=== PATIENT | female | born 1990 | race American Indian/Alaskan Native ===

== ENCOUNTER 2018-03-23 19:31 | Emergency (ER) | payer SELFPAY ==
[2018-03-23 20:08] VITALS: BP 140/89
--- NOTE | 2018-03-23 22:46 | Emergency Department Report ---
ED Medical Clearance HPI - General Chief complaint: Medical Clearance Stated complaint: POSS MOLD EXPOSURE Time Seen by Provider: 03/23/18 22:25 Source: patient Mode of arrival: Ambulatory - History of Present Illness Initial comments: Patient is a 28-year-old -[place] female who presents for medical clearance patient has multiple sick exacerbating her bronchitis and seasonal allergies complains of frequent rhinorrhea nasal and head congestion nocturnal wheezing been no fever or chills no nausea vomiting she's had positive mole test in her apartment and cough is worsening. Patient states symptoms are improved by leaving home symptoms are exacerbated by being in her apartment Complaint: medical clearance request Onset/Timin -: month(s) Reason for Medical Clearance: other (pos mole spore in apartment ) Place: home Alledged Intoxication: No Compliant with Home Medications: Yes Traumatic Symptoms: denies traumatic injury Associated Symptoms: cough Treatments Prior to Arrival: none Home medications: Previous Rx's Medication Instructions Recorded Last Taken Type Cetirizine HCl [ZyrTEC] 10 mg PO DAILY #30 tab.rapdis 03/24/18 Unknown Rx Fluticasone [Flonase] 1 spray NS QDAY #1 bottle 03/24/18 Unknown Rx Ibuprofen 800 mg PO TID PRN #30 tablet 03/24/18 Unknown Rx predniSONE [Deltasone] 40 mg PO QDAY 5 Days #10 tab 03/24/18 Unknown Rx Allergies/Adverse reactions: Allergies Allergy/AdvReac Type Severity Reaction Status Date / Time grass pollen Allergy Itching Verified 03/23/18 20:01 mold Allergy Shortness Verified 03/23/18 20:01 of Breath shrimp Allergy Itching Verified 03/23/18 20:01 ED Review of Systems ROS: Stated complaint: POSS MOLD EXPOSURE Other details as noted in HPI Constitutional: denies: chills, fever Eyes: denies: eye pain, eye discharge, vision change ENT: congestion. denies: ear pain, throat pain Respiratory: cough, shortness of breath, wheezing Cardiovascular: denies: chest pain, palpitations Endocrine: no symptoms reported Gastrointestinal: denies: abdominal pain, nausea, vomiting, diarrhea Genitourinary: denies: urgency, dysuria, discharge Musculoskeletal: denies: back pain, joint swelling, arthralgia Skin: denies: rash, lesions Neurological: denies: headache, weakness, paresthesias Psychiatric: denies: anxiety, depression Hematological/Lymphatic: denies: easy bleeding, easy bruising ED Past Medical Hx - Past Medical History Previous Medical History?: No Additional medical history: FIBROIDS - Surgical History Past Surgical History?: Yes Additional Surgical History: FIBROIDS SURGERY - Social History Smoking Status: Current Every Day Smoker Substance Use Type: Alcohol - Medications Home Medications: Home Medications Medication Instructions Recorded Confirmed Last Taken Type Cetirizine HCl [ZyrTEC] 10 mg PO DAILY #30 tab.rapdis 03/24/18 Unknown Rx Fluticasone [Flonase] 1 spray NS QDAY #1 bottle 03/24/18 Unknown Rx Ibuprofen 800 mg PO TID PRN #30 tablet 03/24/18 Unknown Rx predniSONE [Deltasone] 40 mg PO QDAY 5 Days #10 tab 03/24/18 Unknown Rx ED Physical Exam - General Limitations: No Limitations General appearance: alert, in no apparent distress - Head Head exam: Present: atraumatic, normocephalic - Eye Eye exam: Present: normal appearance, PERRL, EOMI Pupils: Present: normal accommodation - ENT ENT exam: Present: normal orophraynx, mucous membranes moist, TM's normal bila terally, normal external ear exam - Neck Neck exam: Present: normal inspection, full ROM. Absent: tenderness, lymphadenopathy, thyromegaly - Respiratory Respiratory exam: Present: normal lung sounds bilaterally. Absent: respiratory distress, wheezes, rhonchi, stridor, chest wall tenderness - Cardiovascular Cardiovascular Exam: Present: regular rate, normal rhythm, normal heart sounds. Absent: systolic murmur, diastolic murmur, rubs, gallop - GI/Abdominal GI/Abdominal exam: Present: soft, normal bowel sounds. Absent: distended, guarding, bruit, hernia - Rectal Rectal exam: Present: deferred - Extremities Exam Extremities exam: Present: normal inspection, full ROM. Absent: tenderness - Back Exam Back exam: Present: normal inspection, full ROM. Absent: tenderness - Neurological Exam Neurological exam: Present: alert, oriented X3, CN II-XII intact - Psychiatric Psychiatric exam: Present: normal affect, normal mood - Skin Skin exam: Present: warm, dry, intact, normal color. Absent: rash ED Course Vital Signs 03/23/18 20:01 Temperature 97.6 F Pulse Rate 70 Respiratory 14 Rate Blood Pressure 140/89 O2 Sat by Pulse 100 Oximetry ED Medical Decision Making - Radiology Data Radiology results: report reviewed, image reviewed FINDINGS: Heart: Normal. Mediastinum/Vessels: Normal. Lungs/Pleural space: Normal. Bony thorax: No acute osseous abnormality. Other: IMPRESSION: Normal examination. Transcribed By: CO Dictated By: LINDA DOTY MD Electronically Authenticated By: LINDA DOTY MD Signed Date/Time: 03/24/18 0012 - Medical Decision Making Chest x-ray is normal no infiltrates no opacities ENT exam TMs are normal nose mild rhinorrhea and postnasal drip mildly boggy pharynx mild erythema no exudate no lesions no wheezing no stridor uvula remains midline lungs are clear throughout plan Zyrtec Flonase ibuprofen when necessary follow up with PCP in 2 to 3 days return to emergency should symptoms worsen, pt verbalized agreement and understanding of discharge plan. ED Disposition Clinical Impression: Seasonal allergies, Suspected exposure to mold Disposition: DC-01 TO HOME OR SELFCARE Is pt being admited?: No Does the pt Need Aspirin: No Condition: Stable Instructions: Allergies (ED) Prescriptions: Cetirizine HCl [ZyrTEC] 10 mg PO DAILY #30 tab.rapdis Fluticasone [Flonase] 1 spray NS QDAY #1 bottle Ibuprofen 800 mg PO TID PRN #30 tablet PRN Reason: pain predniSONE [Deltasone] 40 mg PO QDAY 5 Days #10 tab Referrals: PRIMARY CARE, [Primary Care Provider] - 3-5 Days Forms: Work/School Release Form(ED) Time of Disposition: 00:23
[2018-03-23 22:59] LABS: HCG Qualitative,Urine Negative (Negative)
--- NOTE | 2018-03-24 00:12 | XRay Report ---
FINAL REPORT PROCEDURE: XR CHEST ROUTINE 2V TECHNIQUE: PA and lateral chest radiographs were obtained. CPT 35199 HISTORY: sob COMPARISON: No prior studies are available for comparison. FINDINGS: Heart: Normal. Mediastinum/Vessels: Normal. Lungs/Pleural space: Normal. Bony thorax: No acute osseous abnormality. Other: IMPRESSION: Normal examination.
== END 2018-03-24 00:32 | disposition home or self-care (01) ==
LOC: ED 19:31
DX: J34.89 Other specified disorders of nose and nasal sinuses (principal); F17.200 Nicotine dependence, unspecified, uncomplicated; Z91.013 Allergy to seafood
CPT/HCPCS: 71046; 81025; 99283

== ENCOUNTER 2021-11-06 07:50 | Inpatient (IN) | payer OTHER ==
--- NOTE | 2021-11-06 09:00 | Emergency Department Report ---
Stated Complaint: SOB/CHEST PAIN/COUGHING BLOOD Time Seen by Provider: 11/06/21 08:59 - HPI History of Present Illness: Patient states for the last 2 days she has had shortness of breath chest pain and coughing up blood. She denies nausea, vomiting, dizziness, diaphoresis. - ROS Review of Systems: Chest pain shortness of breath. - Exam Physical Exam: Alert and oriented x3. MSE screening note: Focused history and physical exam performed. Due to findings the following was ordered: CBC, CMP, troponin, EKG, D-dimer. Patient be further evaluated when he gets a room in the back. ED Disposition for MSE Condition: Stable
[2021-11-06 13:48] LABS: INR QNS (0.87-1.13); Partial Thromboplastin Time QNS Sec. (24.2-36.6)
--- NOTE | 2021-11-06 14:15 | XRay Report ---
XR chest routine 2V INDICATION / CLINICAL INFORMATION: sob. COMPARISON: 03/23/2018 FINDINGS: SUPPORT DEVICES: None. HEART /PULMONARY VASCULATURE: No significant abnormality. LUNGS / PLEURA: Lung volumes are diminished. Streaky perihilar opacities. There is airspace consolida tion of the lateral left lung base. More mild airspace consolidation is suggested at the lateral righ t costophrenic sulcus. No sizable pleural effusion. No pneumothorax. ADDITIONAL FINDINGS: No significant additional findings. IMPRESSION: Bibasilar airspace consolidation, left greater than right, concerning for pneumonia. Signer Name: Nilesh Fam MD Signed: 11/06/2021 2:11 PM Workstation Name: [id number]
[2021-11-06 16:33] LABS: Partial Thromboplastin Time 34.5 Sec. (24.2-36.6)
[2021-11-06 18:18] LABS: Alanine Aminotransferase 7 units/L (7-56); Albumin 4.4 g/dL (3.9-5); Blood Urea Nitrogen 4 mg/dL (7-17); Calcium 9.2 mg/dL (8.4-10.2); Hemolysis Index 33
[2021-11-06 18:19] LABS: BUN/Creatinine Ratio 13
--- NOTE | 2021-11-06 21:57 | Event Note ---
Date: 11/06/21 Received phone call from radiologist informing me the patient has massive bilateral PEs with evidence of infarction seen on a CT scan ordered by RAMSEY. No saddle embolus. Nursing attempting to locate patient as she she may have eloped
[2021-11-06] MEDS ORDERED: HEPARIN 10,000 UNITS/10 ML VIAL IV PRN ×2 (21:59→22:11)
[2021-11-06] MEDS ORDERED: HEPARIN 10,000 UNITS/10 ML VIAL IV ONE ×2 (21:59→22:11)
--- NOTE | 2021-11-06 22:03 | Cat Scan Report ---
CTA CHEST WITH CONTRAST INDICATION / CLINICAL INFORMATION: SHORTNESS OF BREATH 100ml of [id number]. TECHNIQUE: Axial CT images were obtained through the chest after injection of IV contrast. 3 plane ME P and/or 3D reconstructions were produced. All CT scans at this location are performed using CT dose reduction for ALARA by means of automated exposure control. COMPARISON: X-ray chest of same date FINDINGS: PULMONARY EMBOLUS: Extensive bilateral pulmonary emboli involving the distal lobar and proximal segme ntal branches of the left and right lower lobes. THORACIC AORTA: No significant abnormality. HEART: Mild prominence of the right ventricle, suggesting early strain. CORONARY ARTERY CALCIFICATION: Absent -- None. MEDIASTINUM / DANA: No significant abnormality. PLEURA: No pleural effusion. No pneumothorax. LUNGS: Extensive consolidations within the bilateral lower lobes, concerning for pulmonary infarction . ADDITIONAL FINDINGS: None. UPPER ABDOMEN: No acute findings. SKELETAL STRUCTURES: No significant osseous abnormality. IMPRESSION: 1. Extensive bilateral pulmonary emboli involving the distal lobar and proximal segmental branches of the left and right lower lobes with resultant pulmonary infarctions within the bilateral lower lobes . 2. Mild right heart strain. CRITICAL RESULT: Extensive bilateral pulmonary emboli with developing pulmonary infarctions and mild right heart strain. Time of Discovery (KEY ACCOUNT EXECUTIVE/CDT): 8:40 PM 11/06/2021 Time of Communication (KEY ACCOUNT EXECUTIVE/CDT): 8:55 PM 11/06/2021 Licensed Practitioner Receiving Report: Dr. Peacock Read-Back Performed: Yes. Signer Name: Tera Ro MD Signed: 11/06/2021 9:58 PM Workstation Name: [email or web address]
--- NOTE | 2021-11-06 22:05 | Emergency Department Report ---
HPI - General Chief Complaint: Dyspnea/Respdistress Time Seen by Provider: 11/06/21 08:59 - HPI HPI: Room 24 The patient is a 31-year-old female present with chief complaint of chest pain shortness of breath. Patient states her symptoms began 2 days ago with hemoptysis. Patient states last night she developed pain in her left shoulder which then migrated down to her left chest. Patient admits to continued shortness of breath and pleurisy requiring her to sleep upright. Patient denies any recent flights/long car trips. Patient currently gives her pain a score of 10/10 ED Past Medical Hx - Past Medical History Previous Medical History?: No Additional medical history: FIBROIDS - Surgical History Past Surgical History?: No Additional Surgical History: Myomectomy, thyroidectomy, ovarian cyst removal (patient only has a left ovary remaining) - Family History Family history: no significant - Social History Smoking Status: Current Some Day Smoker (Occasional. Patient states she is not on control) Substance Use Type: None (Denies illicit drug use), Alcohol (Occasional) - Medications Home Medications: Home Medications Medication Instructions Recorded Confirmed Last Taken Type Cetirizine HCl [ZyrTEC] 10 mg PO DAILY #30 tab.rapdis 03/24/18 Unknown Rx Fluticasone [Flonase] 1 spray NS QDAY #1 bottle 03/24/18 Unknown Rx Ibuprofen [Ibuprofen 800] 800 mg PO TID PRN #30 tablet 03/24/18 Unknown Rx predniSONE [Deltasone] 40 mg PO QDAY 5 Days #10 tab 03/24/18 Unknown Rx ED Review of Systems ROS: Stated complaint: SOB/CHEST PAIN/COUGHING BLOOD Other details as noted in HPI Constitutional: no symptoms reported Eyes: denies: eye pain ENT: denies: throat pain Respiratory: shortness of breath, other (Hemoptysis) Cardiovascular: chest pain Endocrine: no symptoms reported Gastrointestinal: denies: abdominal pain Genitourinary: denies: dysuria Musculoskeletal: denies: back pain Neurological: denies: headache Physical Exam - Physical Exam Vital Signs: Vital Signs 11/06/21 08:57 Temperature 98.6 F Pulse Rate 90 Respiratory 18 Rate Blood Pressure 106/59 [Left] O2 Sat by Pulse 99 Oximetry Physical Exam: GENERAL: The patient is well-developed well-nourished female sitting on stretcher appearing to be in mild discomfort. [] HEENT: Normocephalic. Atraumatic. Extraocular motions are intact. Patient has moist mucous membranes. NECK: Supple. Trachea midline CHEST/LUNGS: Clear to auscultation. There is increased work of breathing HEART/CARDIOVASCULAR: Regular. There is tachycardia. There is no gallop rub or murmur. ABDOMEN: Abdomen is soft, nontender. Patient has normal bowel sounds. There is no abdominal distention. SKIN: There is no rash. There is no edema. There is no diaphoresis. NEURO: The patient is awake, alert, and oriented. The patient is cooperative. The patient has no focal neurologic deficits. The patient has normal speech. GCS 15 MUSCULOSKELETAL: There is no tenderness to palpation of the calves bilaterally. There is no evidence of acute injury. ED Course Vital Signs 11/06/21 08:57 Temperature 98.6 F Pulse Rate 90 Respiratory 18 Rate Blood Pressure 106/59 [Left] O2 Sat by Pulse 99 Oximetry - Consultations Consultation #1: 11/06/21 22:05 Vascular surgery paged 11/06/21 22:[address] Armando- recommends Heparin for now ED Medical Decision Making - Lab Data Result diagrams: 11/06/21 17:39 Laboratory Tests 11/06/21 11/06/21 11/06/21 10:13 10:13 10:13 PT QNS INR QNS APTT QNS D-Dimer QNS Sodium Potassium Chloride Carbon Dioxide Anion Gap BUN Creatinine Estimated GFR BUN/Creatinine Ratio Glucose Calcium Total Bilirubin AST ALT Alkaline Phosphatase Troponin T < 0.010 Total Protein Albumin Albumin/Globulin Ratio HCG, Qual Negative 11/06/21 11/06/21 15:01 17:39 PT 14.3 INR 1.00 APTT 34.5 D-Dimer 892.54 H Sodium 139 Potassium 4.3 Chloride 101.1 Carbon Dioxide 23 Anion Gap 19 BUN 4 L Creatinine 0.3 L Estimated GFR > 60 BUN/Creatinine Ratio 13 Glucose 112 H Calcium 9.2 Total Bilirubin 0.50 AST 13 ALT 7 Alkaline Phosphatase 103 Troponin T Total Protein 7.1 Albumin 4.4 Albumin/Globulin Ratio 1.6 HCG, Qual - EKG Data -: EKG Interpreted by Ia EKG shows normal: sinus rhythm, axis Rate: normal (91 bpm) - EKG Data When compared to previous EKG there are: previous EKG unavailable Interpretation: nonspecific ST-T wave violet - Radiology Data Radiology results: report reviewed (CT chest), image reviewed (CT chest) [facility] [address] [id number] Cat Scan Report Signed Patient: TODD CARR MR#: [id number] : 1990 Acct:[id number] Age/Sex: 31 / F ADM Date: 11/06/21 Loc: ED Attending Dr: Ordering Physician: KELSIE DOWLING MD Date of Service: 11/06/21 Procedure(s): CT angio chest Accession Number(s): [id number] cc: KELSIE DOWLING MD CTA CHEST WITH CONTRAST INDICATION / CLINICAL INFORMATION: SHORTNESS OF BREATH 100ml of [id number]. TECHNIQUE: Axial CT images were obtained through the chest after injection of IV contrast. 3 plane MIP and/or 3D reconstructions were produced. All CT scans at this location are performed using CT dose reduction for ALARA by means of automated exposure control. COMPARISON: X-ray chest of same date FINDINGS: PULMONARY EMBOLUS: Extensive bilateral pulmonary emboli involving the distal lobar and proximal segmental branches of the left and right lower lobes. THORACIC AORTA: No significant abnormality. HEART: Mild prominence of the right ventricle, suggesting early strain. CORONARY ARTERY CALCIFICATION: Absent -- None. MEDIASTINUM / DANA: No significant abnormality. PLEURA: No pleural effusion. No pneumothorax. LUNGS: Extensive consolidations within the bilateral lower lobes, concerning for pulmonary infarction. ADDITIONAL FINDINGS: None. UPPER ABDOMEN: No acute findings. SKELETAL STRUCTURES: No significant osseous abnormality. IMPRESSION: 1. Extensive bilateral pulmonary emboli involving the distal lobar and proximal segmental branches of the left and right lower lobes with resultant pulmonary infarctions within the bilateral lower lobes. 2. Mild right heart strain. - Differential Diagnosis PE, pneumonia, bronchitis Critical care attestation.: If time is entered above; I have spent that time in minutes in the direct care of this critically ill patient, excluding procedure time. ED Disposition Clinical Impression: Pulmonary embolism, bilateral, Chest pain Disposition: ADMITTED INPATIENT Is pt being admited?: Yes Does the pt Need Aspirin: No Condition: Serious Instructions: Nonspecific Chest Pain, Adult Referrals: JOE OSHEA MD [Primary Care Provider] - 3-5 Days Time of Disposition: 22:12 (Care transferred to hospitalist (Dr. Duron))
[2021-11-06] MEDS ORDERED: HYDROmorphone 1 MG/1 ML INJ IV ONE (22:07)
[2021-11-06] MEDS ORDERED: ONDANSETRON 4 MG/2 ML INJ IV ONE (22:07)
[2021-11-06] MEDS ORDERED: ACETAMINOPHEN 325 MG TAB PO PRN (22:18)
[2021-11-06] MEDS ORDERED: MORPHINE 2 MG/1 ML INJ IV PRN (22:18)
[2021-11-06] MEDS ORDERED: ONDANSETRON 4 MG/2 ML INJ IV PRN (22:18)
[2021-11-06] MEDS ORDERED: ALBUTEROL 2.5 MG/3 ML NEBU IH PRN (22:18)
--- NOTE | 2021-11-06 22:26 | History and Physical Report ---
History of Present Illness Date of examination: 11/06/21 Date of admission: 11/06/21 Chief complaint: Dyspnea Respiratory distress Chest pain History of present illness: 31-year-old female with history of uterine fibroid and tobacco abuser was brought to the emergency room because of chest pain shortness of breath. Patient states her symptoms began 2 days ago with hemoptysis. Patient states last night she developed pain in her left shoulder which then migrated down to her left chest. Patient admits to continued shortness of breath and pleurisy requiring her to sleep upright. Patient denies any recent flights/long car trips. Patient currently gives her pain a score of 10/10 In the emergency room chest CTA shows extensive bilateral pulmonary emboli invo lving the distal lobar and proximal segmental branches of the left and right lower lobes with resultant pulmonary infarction within the bilateral lower lobes. Mild right heart strain Will put the patient on heparin drip. Will consult pulmonary as well as vascular for evaluation Past History Past Medical History: other (Fibroid, tobacco abuser) Past Surgical History: Other (Myomectomy, thyroidectomy, ovarian cyst removal (patient only has a left ovary remaining)) Social history: smoking Family history: no significant family history Medications and Allergies Allergies Allergy/AdvReac Type Severity Reaction Status Date / Time grass pollen Allergy Itching Verified 11/06/21 09:00 mold Allergy Shortness Verified 11/06/21 09:00 of Breath shrimp Allergy Itching Verified 11/06/21 09:00 Home Medications Medication Instructions Recorded Confirmed Last Taken Type Cetirizine HCl [ZyrTEC] 10 mg PO DAILY #30 tab.rapdis 03/24/18 Unknown Rx Fluticasone [Flonase] 1 spray NS QDAY #1 bottle 03/24/18 Unknown Rx Ibuprofen [Ibuprofen 800] 800 mg PO TID PRN #30 tablet 03/24/18 Unknown Rx predniSONE [Deltasone] 40 mg PO QDAY 5 Days #10 tab 03/24/18 Unknown Rx Active Meds: Active Medications Heparin Sodium (Porcine) (Heparin 10,000 Units/10 Ml Vial) 3,200 unit 40 unit/kg (3200 unit) IV Q6H PRN PRN Reason: Anti-Xa Assay<0.1 units/ml Heparin Sodium/Sodium Chloride (Heparin/ 0.45% Nacl-25,000 Unit/500 Ml) 25,000 unit in 500 mls @ 23.95 mls/hr IV TITR ALEXIA; Protocol Review of Systems All systems: negative Cardiovascular: chest pain, shortness of breath, dyspnea on exertion Respiratory: cough, hemoptysis, shortness of breath, dyspnea on exertion Exam - Constitutional Vitals: Temp Pulse Resp BP Pulse Ox 98.6 F 90 18 106/59 99 11/06/21 08:57 11/06/21 08:57 11/06/21 08:57 11/06/21 08:57 11/06/21 08:57 General appearance: Present: no acute distress, well-nourished - EENT Eyes: Present: PERRL ENT: hearing intact, clear oral mucosa - Neck Neck: Present: supple, normal ROM - Respiratory Respiratory effort: normal Respiratory: bilateral: diminished - Cardiovascular Heart Sounds: Present: S1 & S2. Absent: rub, click - Extremities Extremities: pulses symmetrical, No edema Peripheral Pulses: within normal limits - Abdominal General gastrointestinal: Present: soft, non-tender, non-distended, normal bowel sounds Female genitourinary: Present: normal - Integumentary Integumentary: Present: clear, warm, dry - Musculoskeletal Musculoskeletal: gait normal, strength equal bilaterally - Psychiatric Psychiatric: appropriate mood/affect, intact judgment & insight - Neurologic Neurologic: CNII-XII intact, moves all extremities HEART Score - HEART Score Troponin: Troponin T < 0.010 ng/mL (0.00-0.029) 11/06/21 10:13 Results - Labs CBC & Chem 7: 11/06/21 17:39 Labs: Laboratory Last Values PT 14.3 Sec. (12.2-14.9) 11/06/21 15:01 INR 1.00 (0.87-1.13) 11/06/21 15:01 APTT 34.5 Sec. (24.2-36.6) 11/06/21 15:01 D-Dimer 892.54 ng/mlDDU (0-234) H 11/06/21 15:01 Sodium 139 mmol/L (137-145) 11/06/21 17:39 Potassium 4.3 mmol/L (3.6-5.0) 11/06/21 17:39 Chloride 101.1 mmol/L (98-107) 11/06/21 17:39 Carbon Dioxide 23 mmol/L (22-30) 11/06/21 17:39 Anion Gap 19 mmol/L 11/06/21 17:39 BUN 4 mg/dL (7-17) L 11/06/21 17:39 Creatinine 0.3 mg/dL (0.6-1.2) L 11/06/21 17:39 Estimated GFR > 60 ml/min 11/06/21 17:39 BUN/Creatinine Ratio 13 % 11/06/21 17:39 Glucose 112 mg/dL (65-100) H 11/06/21 17:39 Calcium 9.2 mg/dL (8.4-10.2) 11/06/21 17:39 Total Bilirubin 0.50 mg/dL (0.1-1.2) 11/06/21 17:39 AST 13 units/L (5-40) 11/06/21 17:39 ALT 7 units/L (7-56) 11/06/21 17:39 Alkaline Phosphatase 103 units/L (35-129) 11/06/21 17:39 Troponin T < 0.010 ng/mL (0.00-0.029) 11/06/21 10:13 Total Protein 7.1 g/dL (6.3-8.2) 11/06/21 17:39 Albumin 4.4 g/dL (3.9-5) 11/06/21 17:39 Albumin/Globulin Ratio 1.6 % 11/06/21 17:39 HCG, Qual Negative (Negative) 11/06/21 10:13 - Imaging and Cardiology CT scan - chest: report reviewed Assessment and Plan VTE prophylaxis?: Chemical Plan of care discussed with patient/family: Yes - Patient Problems (1) Pulmonary embolism, bilateral Current Visit: Yes Status: Acute Plan to address problem: Admit the patient to the medical telemetry. Oxygen by nasal cannula 3 L/min. DuoNeb and nebulizer every 4 hours. Albuterol via nebulizer every 4 hours as needed. Heparin drip as per protocol. Reconsult vascular as well as pulmonary for evaluation. Echocardiogram. (2) Chest pain Current Visit: Yes Status: Acute Plan to address problem: Most likely secondary to pulmonary embolism. Troponin is 0.010. Heparin drip as per protocol. Serial cardiac enzymes. Echocardiogram. Consult cardiology if needed (3) Tobacco abuse Current Visit: Yes Status: Acute Plan to address problem: We counseled regarding quitting smoking. We will put the patient on nicotine patch (4) Fibroid, uterine Current Visit: Yes Status: Acute Plan to address problem: Is stable. Outpatient follow-up with [facility] (5) DVT prophylaxis Current Visit: Yes Status: Acute Plan to address problem: Heparin drip as per protocol for DVT prophylaxis. Pepcid 20 mg p.o. twice daily for GI prophylaxis. Patient is a full code
--- NOTE | 2021-11-06 22:34 | Event Note ---
Date: 11/06/21 Called for patient with bilateral PE and bilateral pulmonary infarctions. Per report the patient presented with complaints of hemoptysis 2 days ago followed by left shoulder/chest pain and shortness of breath. Continues to complain of shortness of breath with pain. No hemoptysis at this time. Room air saturation wer 97%. Tachycardia to 115 but hemodynamically stable. No elevated troponin. Recommend anticoagulation with a heparin gtt. No indication for pulmonary artery thrombectomy at this time and a relative contraindication for t hrombolysis given the previous hemoptysis. If the patient develops severe hemptysis, with the heparin gtt, she may require cessation and undergo bronchial artery embolization.
[2021-11-06 22:55] LABS: Basophils # (Auto) 0.1 K/mm3 (0.0-0.1); Basophils % (Auto) 0.5 % (0.0-1.8); Eosinophils % (Auto) 0.1 % (0.0-4.3); Hematocrit 38.7 % (30.3-42.9); Hemoglobin 12.5 gm/dl (10.1-14.3); Lymphocytes # (Auto) 1.3 K/mm3 (1.2-5.4); Lymphocytes % (Auto) 10.7 % (13.4-35.0); Mean Corpuscular HGB Conc 32 % (30-34); Mean Corpuscular Volume 85 fl (79-97); Monocytes # (Auto) 1.3 K/mm3 (0.0-0.8); Monocytes % (Auto) 11.2 % (0.0-7.3); Platelet Count 327 K/mm3 (140-440); Red Blood Count 4.57 M/mm3 (3.65-5.03); Red Cell Distribution Width 14.2 % (13.2-15.2)
[2021-11-06] MEDS ORDERED: HEPARIN/ 0.45% NACL DRIP 25,000 UNIT/500 ML BAG IV SCH (23:00)
[2021-11-06] MEDS ORDERED: NICOTINE 14 MG/24 HR PATCH TD ONE (23:27)
[2021-11-07] MEDS: MORPHINE 4 MG/1 ML INJ IV PRN ×3 (00:33→08:24)
[2021-11-07] MEDS: IPRATROPIUM/ALBUTEROL SULFATE 3 ML AMPUL.NEB IH SCH ×3 (02:14→13:26)
[2021-11-07 06:07] LABS: Basophils % (Auto) 0.3 % (0.0-1.8); Eosinophils % (Auto) 0.1 % (0.0-4.3); Hematocrit 36.1 % (30.3-42.9); Hemoglobin 11.5 gm/dl (10.1-14.3); Lymphocytes % (Auto) 7.9 % (13.4-35.0); Mean Corpuscular HGB Conc 32 % (30-34); Mean Corpuscular Volume 85 fl (79-97); Monocytes # (Auto) 1.8 K/mm3 (0.0-0.8); Monocytes % (Auto) 13.7 % (0.0-7.3); Platelet Count 301 K/mm3 (140-440); Red Blood Count 4.25 M/mm3 (3.65-5.03)
[2021-11-07 06:22] LABS: BUN/Creatinine Ratio 10; Blood Urea Nitrogen 4 mg/dL (7-17); Calcium 8.9 mg/dL (8.4-10.2); Hemolysis Index 20
[2021-11-07] MEDS: FAMOTIDINE 20 MG TAB PO SCH ×2 (09:51→22:09)
--- NOTE | 2021-11-07 09:52 | Electrocardiograph Report ---
[facility] Test Date: 2021-11-06 Test Time: 09:05:59 Pat Name: TODD CARR Department: Room: A468 Gender: F Reptile Farmer: BRAXTON : 1990 Requested By: BILL EMMANUEL Order Number: [id number] Reading MD: Deandre oM Measurements Intervals [place] Rate: 91 P: 60 MS: 141 QRS: 58 QRSD: 82 T: 66 QT: 357 QTc: 439 Interpretive Statements Sinus rhythm RSR' IN V1 OR V2, PROBABLY NORMAL VARIANT No previous ECG available for comparison Electronically Signed On 11-07-2021 9:52:33 EDT by Deandre Mo
--- NOTE | 2021-11-07 12:14 | Progress Note ---
Assessment and Plan Patient with bilateral pulmonary emboli. She initially had a mopped assist. Since then she has been initiated on a heparin drip and is bringing up sputum with some flecks of blood. No gross hemoptysis identified at time of examination. The patient is breathing and chest pain have significantly improved since her presentation. We will continue to follow. 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 She states that she has been short of breath for 2 to 3 days prior to presentation to the hospital. No complaints of any leg pain prior to this or leg swelling. Patient has not had a DVT before per her knowledge. Objective - Constitutional Vitals: Vital Signs - 12hr 11/07/21 11/07/21 11/07/21 00:15 03:47 07:51 Temperature 99.2 F Pulse Rate 112 H Pulse Rate [ Anterior Bilateral Throughout] Respiratory 18 Rate Respiratory Rate [Anterior Bilateral Throughout] Blood Pressure 134/68 O2 Sat by Pulse 100 100 100 Oximetry 11/07/21 11/07/21 11/07/21 08:04 09:12 09:26 Temperature 97.6 F Pulse Rate 95 H Pulse Rate [ 98 H Anterior Bilateral Throughout] Respiratory 18 Rate Respiratory 20 Rate [Anterior Bilateral Throughout] Blood Pressure 111/66 O2 Sat by Pulse 100 96 Oximetry General appearance: Present: no acute distress - EENT Eyes: EOM intact ENT: hearing intact - Neck Neck: supple, normal ROM - Respiratory Respiratory effort: normal - Breasts Breasts: deferred - Gastrointestinal General gastrointestinal: Present: deferred Rectal Exam: deferred - Genitourinary Female genitourinary: deferred - Labs CBC & Chem 7: 11/07/21 05:13 11/07/21 05:13 Labs: Abnormal lab results 11/06/21 11/06/21 11/06/21 Range/Units 15:01 17:39 22:28 WBC 11.8 H (4.5-11.0) K/mm3 MCH 27 L (28-32) pg Lymph % (Auto) 10.7 L (13.4-35.0) % [place] % (Auto) 11.2 H (0.0-7.3) % Lymph # (Auto) (1.2-5.4) K/mm3 [place] # (Auto) 1.3 H (0.0-0.8) K/mm3 Seg Neutrophils % 77.5 H (40.0-70.0) % Seg Neutrophils # 9.1 H (1.8-7.7) K/mm3 D-Dimer 892.54 H (0-234) ng/mlDDU BUN 4 L (7-17) mg/dL Creatinine 0.3 L (0.6-1.2) mg/dL Glucose 112 H (65-100) mg/dL 11/07/21 11/07/21 Range/Units 05:13 05:13 WBC 13.0 H (4.5-11.0) K/mm3 MCH 27 L (28-32) pg Lymph % (Auto) 7.9 L (13.4-35.0) % [place] % (Auto) 13.7 H (0.0-7.3) % Lymph # (Auto) 1.0 L (1.2-5.4) K/mm3 [place] # (Auto) 1.8 H (0.0-0.8) K/mm3 Seg Neutrophils % 78.0 H (40.0-70.0) % Seg Neutrophils # 10.1 H (1.8-7.7) K/mm3 D-Dimer (0-234) ng/mlDDU BUN 4 L (7-17) mg/dL Creatinine 0.4 L (0.6-1.2) mg/dL Glucose 109 H (65-100) mg/dL Medications & Allergies - Medications Allergies/Adverse Reactions: Allergies grass pollen Allergy (Verified 11/06/21 09:00) Itching mold Allergy (Verified 11/06/21 09:00) Shortness of Breath shrimp Allergy (Verified 11/06/21 09:00) Itching Active Medications: Generic Name Dose Route Start Last Admin Trade Name Freq PRN Reason Stop Dose Admin Acetaminophen 650 mg 11/06/21 22:18 Acetaminophen 325 Mg Tab PO Q4H PRN Pain MILD(1-3)/Fever >100.5/AG Albuterol 2.5 mg 11/06/21 22:18 Albuterol 2.5 Mg/3 Ml Nebu IH Q3HRT PRN Shortness Of Breath Albuterol/Ipratropium 1 ampul 11/07/21 02:00 11/07/21 09:31 Ipratropium/Albuterol Sulfate 3 Ml Ampul.Neb IH 1 ampul Q6HRT ALEXIA Administration Benzonatate 100 mg 11/07/21 12:30 Benzonatate 100 Mg Cap PO Q8HR ALEXIA Famotidine 20 mg 11/07/21 10:00 11/07/21 09:51 Famotidine 20 Mg Tab PO 20 mg BID ALEXIA Administration Heparin Sodium (Porcine) 3,200 unit 11/06/21 22:11 Heparin 10,000 Units/10 Ml Vial 40 unit/kg (3200 unit) IV Q6H PRN Anti-Xa Assay<0.1 units/ml Heparin Sodium/Sodium Chloride 25,000 unit in 500 mls @ 23 mls/hr 11/06/21 23:00 11/06/21 22:34 Heparin/ 0.45% Nacl-25,000 Unit/500 Ml IV 1,150 units/hr TITR ALEXIA 23 mls/hr Administration Protocol 1,150 UNITS/HR Morphine Sulfate 2 mg 11/06/21 22:18 Morphine 2 Mg/1 Ml Inj IV Q4H PRN Pain, Moderate (4-6) Morphine Sulfate 4 mg 11/06/21 22:18 11/07/21 08:24 Morphine 4 Mg/1 Ml Inj IV 4 mg Q4H PRN Administration Pain , Severe (7-10) Ondansetron HCl 4 mg 11/06/21 22:18 Ondansetron 4 Mg/2 Ml Inj IV Q8H PRN Nausea And Vomiting Sodium Chloride 10 ml 11/07/21 10:00 11/07/21 10:36 Sodium Chloride 0.9% 10 Ml Flush Syringe IV Not Given BID ALEXIA Sodium Chloride 10 ml 11/06/21 22:18 Sodium Chloride 0.9% 10 Ml Flush Syringe IV PRN PRN LINE FLUSH HEART Score - HEART Score Troponin: Troponin T < 0.010 ng/mL (0.00-0.029) 11/06/21 10:13
[2021-11-07] MEDS ORDERED: MORPHINE 4 MG/1 ML INJ IV PRN (13:00)
[2021-11-07] MEDS: BENZONATATE 100 MG CAP PO SCH ×3 (13:00→22:09)
[2021-11-07] MEDS: HYDROcodone/ACETAMINOPHEN 5-325 MG TAB PO PRN ×2 (13:00→22:09)
--- NOTE | 2021-11-07 13:54 | Progress Note ---
Assessment and Plan Assessment and plan: #Bilateral massive pulmonary embolism -D-dimer [address] angio chest with right heart strain Continue heparin drip with goal of transitioning to DOAC prior to discharge. Vascular surgery consulted; appreciate recs Pulmonology consulted; pending recs TTE pending to evaluate the extent of right heart strain. Unremarkable troponin x1. Continue supplemental oxygen and DuoNebs. Continue analgesics as needed. #COVID-pneumonia #Acute hypoxic respiratory failure #Leukocytosisworsening WBC 11.8--> 13 - etiology: Bilateral massive pulmonary embolism + COVID-pneumonia - baseline oxygen requirements: Room air - supplemental oxygen: 3 L nasal cannula - Continue protocol: continue pulse oximetry, wean oxygen as tolerated, ordered incentive spirometry and educated patient on how to use it and its importance. Starting airborne and droplet precautions. Continue scheduled DuoNebs and albuterol nebs as needed. Starting IV dexamethasone 8 mg daily x10 days, continuous pulse ox, telemetry -Infectious disease consulted; pending recs - continue to monitor #Uterine fibroid Follow-up with outpatient gynecology #Tobacco dependenceruled #Obesity #Weight loss counseling #Exercise counseling - BMI 30.3 - Counseled patient on the importance of weight loss, incorporating exercise, and dietary changes (lean meats, fresh fruits and vegetables, and water intake). Patient expresses understanding. - Time: +15 min Critical Care Billing: The high probability of a clinically significant, sudden or life threatening deterioration of the [respiratory, ID] system(s) required my full and direct attention, intervention and personal management. The aggregate critical care time was [60] minutes. This time is in addition to time spent performing reported procedures but includes the following: [x] Data Review and interpretation [x] Patient assessment and monitoring of vital signs [x] Documentation [x] Medication orders and management Disposition Plan: Continue medical management Total Time Spent with Patient (Minutes): 45 min History Interval history: No acute events overnight. Hospitalist Physical - Constitutional Vitals: Temp Pulse Resp BP Pulse Ox 97.6 F 81 18 111/66 96 11/07/21 08:04 11/07/21 13:29 11/07/21 13:29 11/07/21 08:04 11/07/21 09:26 General appearance: Present: no acute distress, well-nourished - EENT Eyes: Present: PERRL, EOM intact ENT: hearing intact, clear oral mucosa, dentition normal - Neck Neck: Present: supple, normal ROM - Respiratory Respiratory effort: labored Respiratory: bilateral: diminished (on 3L nasal cannula) - Cardiovascular Rhythm: regular Heart Sounds: Present: S1 & S2 - Extremities Extremities: no ischemia, pulses intact, pulses symmetrical, No edema, normal temperature, normal color, Full ROM Peripheral Pulses: within normal limits - Abdominal General gastrointestinal: soft, non-tender, non-distended, normal bowel sounds - Integumentary Integumentary: Present: clear, warm, dry - Psychiatric Psychiatric: appropriate mood/affect, intact judgment & insight, memory intact, cooperative - Neurologic Neurologic: CNII-XII intact, moves all extremities - Allied Health Allied health notes reviewed: nursing HEART Score - HEART Score Troponin: Troponin T < 0.010 ng/mL (0.00-0.029) 11/06/21 10:13 Results - Labs CBC & Chem 7: 11/07/21 05:13 11/07/21 05:13 Labs: Laboratory Last Values WBC 13.0 K/mm3 (4.5-11.0) H 11/07/21 05:13 RBC 4.25 M/mm3 (3.65-5.03) 11/07/21 05:13 Hgb 11.5 gm/dl (10.1-14.3) 11/07/21 05:13 Hct 36.1 % (30.3-42.9) 11/07/21 05:13 MCV 85 fl (79-97) 11/07/21 05:13 MCH 27 pg (28-32) L 11/07/21 05:13 MCHC 32 % (30-34) 11/07/21 05:13 RDW 14.0 % (13.2-15.2) 11/07/21 05:13 Plt Count 301 K/mm3 (140-440) 11/07/21 05:13 Lymph % (Auto) 7.9 % (13.4-35.0) L 11/07/21 05:13 [place] % (Auto) 13.7 % (0.0-7.3) H 11/07/21 05:13 Eos % (Auto) 0.1 % (0.0-4.3) 11/07/21 05:13 Baso % (Auto) 0.3 % (0.0-1.8) 11/07/21 05:13 Lymph # (Auto) 1.0 K/mm3 (1.2-5.4) L 11/07/21 05:13 [place] # (Auto) 1.8 K/mm3 (0.0-0.8) H 11/07/21 05:13 Eos # (Auto) 0.0 K/mm3 (0.0-0.4) 11/07/21 05:13 Baso # (Auto) 0.0 K/mm3 (0.0-0.1) 11/07/21 05:13 Seg Neutrophils % 78.0 % (40.0-70.0) H 11/07/21 05:13 Seg Neutrophils # 10.1 K/mm3 (1.8-7.7) H 11/07/21 05:13 PT 14.3 Sec. (12.2-14.9) 11/06/21 15:01 INR 1.00 (0.87-1.13) 11/06/21 15:01 APTT 34.5 Sec. (24.2-36.6) 11/06/21 15:01 D-Dimer 892.54 ng/mlDDU (0-234) H 11/06/21 15:01 Heparin Anti-Xa Level < 0.10 U.I./ml (0.3-0.7) L 11/07/21 13:06 Sodium 140 mmol/L (137-145) 11/07/21 05:13 Potassium 4.2 mmol/L (3.6-5.0) 11/07/21 05:13 Chloride 99.6 mmol/L (98-107) 11/07/21 05:13 Carbon Dioxide 28 mmol/L (22-30) 11/07/21 05:13 Anion Gap 17 mmol/L 11/07/21 05:13 BUN 4 mg/dL (7-17) L 11/07/21 05:13 Creatinine 0.4 mg/dL (0.6-1.2) L 11/07/21 05:13 Estimated GFR > 60 ml/min 11/07/21 05:13 BUN/Creatinine Ratio 10 % 11/07/21 05:13 Glucose 109 mg/dL (65-100) H 11/07/21 05:13 Calcium 8.9 mg/dL (8.4-10.2) 11/07/21 05:13 Total Bilirubin 0.50 mg/dL (0.1-1.2) 11/06/21 17:39 AST 13 units/L (5-40) 11/06/21 17:39 ALT 7 units/L (7-56) 11/06/21 17:39 Alkaline Phosphatase 103 units/L (35-129) 11/06/21 17:39 Troponin T < 0.010 ng/mL (0.00-0.029) 11/06/21 10:13 Total Protein 7.1 g/dL (6.3-8.2) 11/06/21 17:39 Albumin 4.4 g/dL (3.9-5) 11/06/21 17:39 Albumin/Globulin Ratio 1.6 % 11/06/21 17:39 HCG, Qual Negative (Negative) 11/06/21 10:13 Coronavirus (PCR) Positive (Negative) A 11/07/21 09:44 Active Medications - Current Medications Current Medications: Generic Name Dose Route Start Last Admin Trade Name Freq PRN Reason Stop Dose Admin Acetaminophen 650 mg 11/06/21 22:18 Acetaminophen 325 Mg Tab PO Q4H PRN Pain MILD(1-3)/Fever >100.5/AG Hydrocodone Bitart/Acetaminophen 1 each 11/07/21 13:00 11/07/21 13:00 Hydrocodone/Acetaminophen 5-325 Mg Tab PO 1 each Q6H PRN Administration Pain, Moderate (4-6) Albuterol 2.5 mg 11/06/21 22:18 Albuterol 2.5 Mg/3 Ml Nebu IH Q3HRT PRN Shortness Of Breath Albuterol/Ipratropium 1 ampul 11/07/21 02:00 11/07/21 13:26 Ipratropium/Albuterol Sulfate 3 Ml Ampul.Neb IH 1 ampul Q6HRT ALEXIA Administration Benzonatate 100 mg 11/07/21 12:30 11/07/21 13:00 Benzonatate 100 Mg Cap PO 100 mg Q8HR ALEXIA Administration Famotidine 20 mg 11/07/21 10:00 11/07/21 09:51 Famotidine 20 Mg Tab PO 20 mg BID ALEXIA Administration Heparin Sodium (Porcine) 3,200 unit 11/06/21 22:11 Heparin 10,000 Units/10 Ml Vial 40 unit/kg (3200 unit) IV Q6H PRN Anti-Xa Assay<0.1 units/ml Heparin Sodium/Sodium Chloride 25,000 unit in 500 mls @ 23 mls/hr 11/06/21 23:00 11/06/21 22:34 Heparin/ 0.45% Nacl-25,000 Unit/500 Ml IV 1,150 units/hr TITR ALEXIA 23 mls/hr Administration Protocol 1,150 UNITS/HR Morphine Sulfate 2 mg 11/07/21 13:00 11/07/21 13:01 Morphine 4 Mg/1 Ml Inj IV 2 mg Q4H PRN Administration Pain , Severe (7-10) Ondansetron HCl 4 mg 11/06/21 22:18 Ondansetron 4 Mg/2 Ml Inj IV Q8H PRN Nausea And Vomiting Sodium Chloride 10 ml 11/07/21 10:00 11/07/21 10:36 Sodium Chloride 0.9% 10 Ml Flush Syringe IV Not Given BID [facility] Sodium Chloride 10 ml 11/06/21 22:18 Sodium Chloride 0.9% 10 Ml Flush Syringe IV PRN PRN LINE FLUSH
--- NOTE | 2021-11-07 14:15 | Consultation ---
History of Present Illness Consult date: 11/07/21 History of present illness: 31 y/o female with 2 days of chest pain, progressive shortness of breath and hemoptysis. Found to have bilateral pulmonary emboli. When I arrived to interview the patient getting nebulized medication and family member at bedside. During interview nurse informed me that patient was covid positive. She is not vaccinated. Suffers from endometrosis and has had several fibroid surgeries and a maternal aunt with uterine cancer at an early age. Past History Past Medical History: other (Fibroid, tobacco abuser, endometriosis) Past Surgical History: Other (Myomectomy, thyroidectomy, ovarian cyst removal (patient only has a left ovary remaining)) Social history: smoking Family history: no significant family history Medications and Allergies Allergies Allergy/AdvReac Type Severity Reaction Status Date / Time grass pollen Allergy Eye Verified 11/07/21 12:24 Swelling mold Allergy Shortness Verified 11/07/21 12:24 of Breath shrimp Allergy Itchy Verified 11/07/21 12:24 Throat Home Medications Medication Instructions Recorded Confirmed Last Taken Type Cranberry 500 mg PO QDAY 11/07/21 11/07/21 Unknown History Fexofenadine/Pseudoephedrine 1 each PO QDAY 11/07/21 11/07/21 Unknown History [Zehra-D 24 Hour Tablet] Lactobacillus Combo No.10 1 each PO QDAY 11/07/21 11/07/21 Unknown History [Probiotic] Active Meds: Active Medications Acetaminophen (Acetaminophen 325 Mg Tab) 650 mg PO Q4H PRN PRN Reason: Pain MILD(1-3)/Fever >100.5/AG Hydrocodone Bitart/Acetaminophen (Hydrocodone/Acetaminophen 5-325 Mg Tab) 1 each PO Q6H PRN PRN Reason: Pain, Moderate (4-6) Last Admin: 11/07/21 13:00 Dose: 1 each Albuterol (Albuterol 2.5 Mg/3 Ml Nebu) 2.5 mg IH Q3HRT PRN PRN Reason: Shortness Of Breath Albuterol/Ipratropium (Ipratropium/Albuterol Sulfate 3 Ml Ampul.Neb) 1 ampul IH Q6HRT ALEXIA Last Admin: 11/07/21 13:26 Dose: 1 ampul Benzonatate (Benzonatate 100 Mg Cap) 100 mg PO Q8HR ALEXIA Last Admin: 11/07/21 14:04 Dose: Not Given Dexamethasone (Dexamethasone 4 Mg/Ml Vial) 8 mg IV DAILY [facility] Stop: 11/16/21 10:01 Famotidine (Famotidine 20 Mg Tab) 20 mg PO BID [facility] Last Admin: 11/07/21 09:51 Dose: 20 mg Heparin Sodium (Porcine) (Heparin 10,000 Units/10 Ml Vial) 3,200 unit 40 unit/kg (3200 unit) IV Q6H PRN PRN Reason: Anti-Xa Assay<0.1 units/ml Heparin Sodium/Sodium Chloride (Heparin/ 0.45% Nacl-25,000 Unit/500 Ml) 25,000 unit in 500 mls @ 23 mls/hr IV TITR [facility]; Protocol Last Admin: 11/06/21 22:34 Dose: 1,150 units/hr, 23 mls/hr Morphine Sulfate (Morphine 4 Mg/1 Ml Inj) 2 mg IV Q4H PRN PRN Reason: Pain , Severe (7-10) Last Admin: 11/07/21 13:01 Dose: 2 mg Ondansetron HCl (Ondansetron 4 Mg/2 Ml Inj) 4 mg IV Q8H PRN PRN Reason: Nausea And Vomiting Sodium Chloride (Sodium Chloride 0.9% 10 Ml Flush Syringe) 10 ml IV BID [facility] Last Admin: 11/07/21 10:36 Dose: Not Given Sodium Chloride (Sodium Chloride 0.9% 10 Ml Flush Syringe) 10 ml IV PRN PRN PRN Reason: LINE FLUSH Review of Systems All systems: negative Physical Examination Vital signs: Vital Signs Temp Pulse Resp BP Pulse Ox 98.6 F 90 18 106/59 99 11/06/21 08:57 11/06/21 08:57 11/06/21 08:57 11/06/21 08:57 11/06/21 08:57 deferred as I was in the room without Proper PPE on my body. I was wearing an N95 Results - Laboratory Findings CBC and BMP: 11/07/21 05:13 11/07/21 05:13 PT/INR, D-dimer PT 14.3 Sec. (12.2-14.9) 11/06/21 15:01 INR 1.00 (0.87-1.13) 11/06/21 15:01 D-Dimer 892.54 ng/mlDDU (0-234) H 11/06/21 15:01 Abnormal lab findings: Abnormal Labs 11/06/21 11/06/21 11/06/21 15:01 17:39 22:28 WBC 11.8 H MCH 27 L Lymph % (Auto) 10.7 L [place] % (Auto) 11.2 H Lymph # (Auto) [place] # (Auto) 1.3 H Seg Neutrophils % 77.5 H Seg Neutrophils # 9.1 H D-Dimer 892.54 H Heparin Anti-Xa Level BUN 4 L Creatinine 0.3 L Glucose 112 H Coronavirus (PCR) 11/07/21 11/07/21 11/07/21 05:13 05:13 09:44 WBC 13.0 H MCH 27 L Lymph % (Auto) 7.9 L [place] % (Auto) 13.7 H Lymph # (Auto) 1.0 L [place] # (Auto) 1.8 H Seg Neutrophils % 78.0 H Seg Neutrophils # 10.1 H D-Dimer Heparin Anti-Xa Level BUN 4 L Creatinine 0.4 L Glucose 109 H Coronavirus (PCR) Positive A 11/07/21 13:06 WBC MCH Lymph % (Auto) [place] % (Auto) Lymph # (Auto) [place] # (Auto) Seg Neutrophils % Seg Neutrophils # D-Dimer Heparin Anti-Xa Level < 0.10 L BUN Creatinine Glucose Coronavirus (PCR) - Diagnostic Findings CT scan - chest: image reviewed Assessment and Plan 31 y/o female with bilateral pulmonary emboli, COVID positive 1. Dexamethasone 6mg IV/PO daily 2. Suggest Remdesivir but would need ID consult 3. Check CRP, Ferritin levels. 4. Not sure if she is a candidate for actemra 5. Anticoagulation 6. Prone PRN during the day and sleep prone at night. 7. Still needs [employer] follow up and hypercoag work up, but most likely this is related to COVID Will continue to follow.
[2021-11-07] MEDS: dexAMETHasone 4 MG/ML VIAL IV SCH (15:10)
[2021-11-08] MEDS: BENZONATATE 100 MG CAP PO SCH ×3 (05:31→22:07)
[2021-11-08 07:34] LABS: Basophils % (Auto) 0.2 % (0.0-1.8); Hematocrit 35.1 % (30.3-42.9); Hemoglobin 11.5 gm/dl (10.1-14.3); Lymphocytes # (Auto) 0.4 K/mm3 (1.2-5.4); Lymphocytes % (Auto) 3.5 % (13.4-35.0); Mean Corpuscular HGB Conc 33 % (30-34); Mean Corpuscular Volume 84 fl (79-97); Monocytes # (Auto) 0.8 K/mm3 (0.0-0.8); Monocytes % (Auto) 6.9 % (0.0-7.3); Platelet Count 319 K/mm3 (140-440); Red Blood Count 4.18 M/mm3 (3.65-5.03); Red Cell Distribution Width 13.6 % (13.2-15.2)
[2021-11-08 07:56] LABS: Blood Urea Nitrogen 6 mg/dL (7-17); Calcium 9.2 mg/dL (8.4-10.2); Hemolysis Index 0
[2021-11-08 07:57] LABS: BUN/Creatinine Ratio 20
[2021-11-08] MEDS: FAMOTIDINE 20 MG TAB PO SCH ×2 (09:47→22:07)
[2021-11-08] MEDS: dexAMETHasone 4 MG/ML VIAL IV SCH (09:48)
[2021-11-08] MEDS: APIXABAN 5 MG TAB PO SCH ×2 (13:02→22:07)
--- NOTE | 2021-11-08 14:16 | Progress Note ---
Assessment and Plan Assessment and plan: #Bilateral massive pulmonary embolism -D-dimer [address] angio chest with right heart strain Transitioned from heparin gtt to Eliquis BID. Vascular surgery consulted; appreciate recs Pulmonology consulted; appreciate recs TTE (11/07/2021) revealing EF 55% and unremarkable for right heart strain. Unremarkable troponin x1. Continue supplemental oxygen and DuoNebs. Continue analgesics as needed. #COVID-pneumonia #Acute hypoxic respiratory failure #Leukocytosis WBC 11.8--> 13 - etiology: Bilateral massive pulmonary embolism + COVID-pneumonia - baseline oxygen requirements: Room air - supplemental oxygen: 3 L nasal cannula - Continue protocol: continue pulse oximetry, wean oxygen as tolerated, ordered incentive spirometry and educated patient on how to use it and its importance. Continue airborne and droplet precautions. Continue scheduled DuoNebs and albuterol nebs as needed. Continue IV dexamethasone 8 mg daily x10 days, continuous pulse ox, telemetry -Infectious disease consulted; pending recs - continue to monitor #Uterine fibroid Follow-up with outpatient gynecology #Tobacco dependenceruled #Obesity #Weight loss counseling #Exercise counseling - BMI 30.3 - Counseled patient on the importance of weight loss, incorporating exercise, and dietary changes (lean meats, fresh fruits and vegetables, and water intake). Patient expresses understanding. - Time: +15 min #Advanced care planning -Disease education conducted, care plan discussed, diagnoses discussed, prognosis discussed, and patient acknowledges understanding with care plan -Time: +30 min Disposition Plan: Continue medical management Total Time Spent with Patient (Minutes): 45 min History Interval history: No acute events overnight. Hospitalist Physical - Constitutional Vitals: Temp Pulse Resp BP Pulse Ox 97.4 F L 64 20 124/79 94 11/08/21 06:32 11/08/21 06:32 11/08/21 10:49 11/08/21 06:32 11/08/21 10:49 General appearance: Present: no acute distress, well-nourished - EENT Eyes: Present: PERRL, EOM intact ENT: hearing intact, clear oral mucosa, dentition normal - Neck Neck: Present: supple, normal ROM - Respiratory Respiratory effort: normal Respiratory: bilateral: diminished (on 3L nasal cannula) - Cardiovascular Rhythm: regular Heart Sounds: Present: S1 & S2 - Extremities Extremities: no ischemia, pulses intact, pulses symmetrical, No edema, normal temperature, normal color, Full ROM Peripheral Pulses: within normal limits - Abdominal General gastrointestinal: soft, non-tender, non-distended, normal bowel sounds - Integumentary Integumentary: Present: clear, warm, dry - Psychiatric Psychiatric: appropriate mood/affect, intact judgment & insight, memory intact, cooperative - Neurologic Neurologic: CNII-XII intact, moves all extremities - Allied Health Allied health notes reviewed: nursing HEART Score - HEART Score Troponin: Troponin T < 0.010 ng/mL (0.00-0.029) 11/06/21 10:13 Results - Labs CBC & Chem 7: 11/08/21 07:00 11/08/21 07:00 Labs: Laboratory Last Values WBC 11.6 K/mm3 (4.5-11.0) H 11/08/21 07:00 RBC 4.18 M/mm3 (3.65-5.03) 11/08/21 07:00 Hgb 11.5 gm/dl (10.1-14.3) 11/08/21 07:00 Hct 35.1 % (30.3-42.9) 11/08/21 07:00 MCV 84 fl (79-97) 11/08/21 07:00 MCH 28 pg (28-32) 11/08/21 07:00 MCHC 33 % (30-34) 11/08/21 07:00 RDW 13.6 % (13.2-15.2) 11/08/21 07:00 Plt Count 319 K/mm3 (140-440) 11/08/21 07:00 Lymph % (Auto) 3.5 % (13.4-35.0) L 11/08/21 07:00 [place] % (Auto) 6.9 % (0.0-7.3) 11/08/21 07:00 Eos % (Auto) 0.0 % (0.0-4.3) 11/08/21 07:00 Baso % (Auto) 0.2 % (0.0-1.8) 11/08/21 07:00 Lymph # (Auto) 0.4 K/mm3 (1.2-5.4) L 11/08/21 07:00 [place] # (Auto) 0.8 K/mm3 (0.0-0.8) 11/08/21 07:00 Eos # (Auto) 0.0 K/mm3 (0.0-0.4) 11/08/21 07:00 Baso # (Auto) 0.0 K/mm3 (0.0-0.1) 11/08/21 07:00 Seg Neutrophils % 89.4 % (40.0-70.0) H 11/08/21 07:00 Seg Neutrophils # 10.3 K/mm3 (1.8-7.7) H 11/08/21 07:00 PT 14.3 Sec. (12.2-14.9) 11/06/21 15:01 INR 1.00 (0.87-1.13) 11/06/21 15:01 APTT 34.5 Sec. (24.2-36.6) 11/06/21 15:01 D-Dimer 892.54 ng/mlDDU (0-234) H 11/06/21 15:01 Heparin Anti-Xa Level 0.58 U.I./ml (0.3-0.7) 11/07/21 21:14 Sodium 138 mmol/L (137-145) 11/08/21 07:00 Potassium 3.6 mmol/L (3.6-5.0) 11/08/21 07:00 Chloride 97.3 mmol/L (98-107) L 11/08/21 07:00 Carbon Dioxide 29 mmol/L (22-30) 11/08/21 07:00 Anion Gap 15 mmol/L 11/08/21 07:00 BUN 6 mg/dL (7-17) L 11/08/21 07:00 Creatinine 0.3 mg/dL (0.6-1.2) L 11/08/21 07:00 Estimated GFR > 60 ml/min 11/08/21 07:00 BUN/Creatinine Ratio 20 % 11/08/21 07:00 Glucose 112 mg/dL (65-100) H 11/08/21 07:00 Calcium 9.2 mg/dL (8.4-10.2) 11/08/21 07:00 Ferritin 283.9 ng/mL (10.0-200.0) H 11/08/21 07:00 Total Bilirubin 0.50 mg/dL (0.1-1.2) 11/06/21 17:39 AST 13 units/L (5-40) 11/06/21 17:39 ALT 7 units/L (7-56) 11/06/21 17:39 Alkaline Phosphatase 103 units/L (35-129) 11/06/21 17:39 Troponin T < 0.010 ng/mL (0.00-0.029) 11/06/21 10:13 C-Reactive Protein 30.70 mg/dL (0.00-1.30) H 11/08/21 07:00 Total Protein 7.1 g/dL (6.3-8.2) 11/06/21 17:39 Albumin 4.4 g/dL (3.9-5) 11/06/21 17:39 Albumin/Globulin Ratio 1.6 % 11/06/21 17:39 HCG, Qual Negative (Negative) 11/06/21 10:13 Coronavirus (PCR) Positive (Negative) A 11/07/21 09:44 [place]/IV: Voiding Method Toilet Active Medications - Current Medications Current Medications: Generic Name Dose Route Start Last Admin Trade Name Freq PRN Reason Stop Dose Admin Acetaminophen 650 mg 11/06/21 22:18 Acetaminophen 325 Mg Tab PO Q4H PRN Pain MILD(1-3)/Fever >100.5/AG Hydrocodone Bitart/Acetaminophen 1 each 11/07/21 13:00 11/07/21 22:09 Hydrocodone/Acetaminophen 5-325 Mg Tab PO 1 each Q6H PRN Administration Pain, Moderate (4-6) Apixaban 10 mg 11/08/21 13:00 11/08/21 13:02 Apixaban 5 Mg Tab PO 11/14/21 22:01 10 mg Q12HR ALEXIA Administration Protocol Benzonatate 100 mg 11/07/21 12:30 11/08/21 13:02 Benzonatate 100 Mg Cap PO 100 mg Q8HR ALEXIA Administration Dexamethasone 8 mg 11/07/21 14:00 11/08/21 09:48 Dexamethasone 4 Mg/Ml Vial IV 11/16/21 10:01 8 mg DAILY ALEXIA Administration Famotidine 20 mg 11/07/21 10:00 11/08/21 09:47 Famotidine 20 Mg Tab PO 20 mg BID ALEXIA Administration Morphine Sulfate 2 mg 11/07/21 13:00 11/07/21 13:01 Morphine 4 Mg/1 Ml Inj IV 2 mg Q4H PRN Administration Pain , Severe (7-10) Ondansetron HCl 4 mg 11/06/21 22:18 Ondansetron 4 Mg/2 Ml Inj IV Q8H PRN Nausea And Vomiting Sodium Chloride 10 ml 11/07/21 10:00 11/08/21 09:48 Sodium Chloride 0.9% 10 Ml Flush Syringe IV 10 ml BID ALEXIA Administration Sodium Chloride 10 ml 11/06/21 22:18 Sodium Chloride 0.9% 10 Ml Flush Syringe IV PRN PRN LINE FLUSH
--- NOTE | 2021-11-08 17:32 | Consultation ---
History of Present Illness - Reason for Consult Consult date: 11/08/21 - History of Present Illness 31-year-old female past medical history uterine fibroids, nicotine abuse presented to hospital complaining of chest pain and shortness of breath. Began 2 days prior to admission and was associated with hemoptysis. Also complains of pain in her left shoulder which radiates into her chest. On admission CTA showed extensive bilateral pulmonary emboli. Afebrile since admission with a white count 11.6. COVID-19 positive. Normal renal function. Elevated inflammatory procalcitonin pending. Currently on dexamethasone. Requiring 2 L nasal cannula. Imaging personally reviewed: Chest CTA: Bilateral pulmonary emboli and resultant pulmonary infarctions. Review of systems: Deferred to reduce to the risk of transmission of COVID-19 Past History Past Medical History: other (Fibroid, tobacco abuser, endometriosis) Past Surgical History: Other (Myomectomy, thyroidectomy, ovarian cyst removal (patient only has a left ovary remaining)) Social history: smoking Family history: no significant family history Medications and Allergies Allergies Allergy/AdvReac Type Severity Reaction Status Date / Time grass pollen Allergy Eye Verified 11/08/21 07:21 Swelling mold Allergy Shortness Verified 11/08/21 07:21 of Breath shrimp Allergy Itchy Verified 11/08/21 07:21 Throat Home Medications Medication Instructions Recorded Confirmed Last Taken Type Cranberry 500 mg PO QDAY 11/07/21 11/07/21 Unknown History Fexofenadine/Pseudoephedrine 1 each PO QDAY 11/07/21 11/07/21 Unknown History [Zehra-D 24 Hour Tablet] Lactobacillus Combo No.10 1 each PO QDAY 11/07/21 11/07/21 Unknown History [Probiotic] Apixaban [Eliquis starter pack] 5 mg PO BID #70 tab 11/08/21 Unknown Rx Active Meds: Active Medications Acetaminophen (Acetaminophen 325 Mg Tab) 650 mg PO Q4H PRN PRN Reason: Pain MILD(1-3)/Fever >100.5/AG Hydrocodone Bitart/Acetaminophen (Hydrocodone/Acetaminophen 5-325 Mg Tab) 1 each PO Q6H PRN PRN Reason: Pain, Moderate (4-6) Last Admin: 11/07/21 22:09 Dose: 1 each Apixaban (Apixaban 5 Mg Tab) 10 mg PO Q12HR [facility]; Protocol Stop: 11/14/21 22:01 Last Admin: 11/08/21 13:02 Dose: 10 mg Benzonatate (Benzonatate 100 Mg Cap) 100 mg PO Q8HR [facility] Last Admin: 11/08/21 13:02 Dose: 100 mg Dexamethasone (Dexamethasone 4 Mg/Ml Vial) 8 mg IV DAILY [facility] Stop: 11/16/21 10:01 Last Admin: 11/08/21 09:48 Dose: 8 mg Famotidine (Famotidine 20 Mg Tab) 20 mg PO BID [facility] Last Admin: 11/08/21 09:47 Dose: 20 mg Morphine Sulfate (Morphine 4 Mg/1 Ml Inj) 2 mg IV Q4H PRN PRN Reason: Pain , Severe (7-10) Last Admin: 11/07/21 13:01 Dose: 2 mg Ondansetron HCl (Ondansetron 4 Mg/2 Ml Inj) 4 mg IV Q8H PRN PRN Reason: Nausea And Vomiting Sodium Chloride (Sodium Chloride 0.9% 10 Ml Flush Syringe) 10 ml IV BID [facility] Last Admin: 11/08/21 09:48 Dose: 10 ml Sodium Chloride (Sodium Chloride 0.9% 10 Ml Flush Syringe) 10 ml IV PRN PRN PRN Reason: LINE FLUSH Physical Examination - Physical Exam Narrative exam: Physical exam deferred to reduce risk of transmission of COVID-19. Please refer to primary team's note. - Constitutional Vitals: Vital Signs Temp Pulse Resp BP Pulse Ox 97.9 F 88 20 115/74 100 11/08/21 15:57 11/08/21 17:21 11/08/21 15:57 11/08/21 15:57 11/08/21 15:57 Temperature -Last 24 Hours Temperature 97.9 F Temperature 97.4 F Temperature 98.0 F Temperature 98.3 F Results - Labs CBC & Chem 7: 11/08/21 07:00 11/08/21 07:00 Labs: Abnormal lab results 11/08/21 11/08/21 11/08/21 Range/Units 07:00 07:00 07:00 WBC 11.6 H (4.5-11.0) K/mm3 Lymph % (Auto) 3.5 L (13.4-35.0) % Lymph # (Auto) 0.4 L (1.2-5.4) K/mm3 Seg Neutrophils % 89.4 H (40.0-70.0) % Seg Neutrophils # 10.3 H (1.8-7.7) K/mm3 Chloride 97.3 L (98-107) mmol/L BUN 6 L (7-17) mg/dL Creatinine 0.3 L (0.6-1.2) mg/dL Glucose 112 H (65-100) mg/dL Ferritin 283.9 H (10.0-200.0) ng/mL C-Reactive Protein 30.70 H (0.00-1.30) mg/dL Assessment and Plan Cultures: Blood culture no growth so far A/P: 31-year-old female past medical history obesity, tobacco abuse #Severe COVID-19 pneumonia: Patient presented with a week of symptoms, chest x- ray with diffuse bilateral infiltrates, admission O2 sats on room air. Inflammatory markers elevated #Acute hypoxemic respiratory failure: Likely secondary to COVID-19 infection. C urrently on 2 L of cannula #Bilateral pulmonary emboli: Secondary to COVID-19 Recommendations: -Dexamethasone 6 mg IV/PO daily for 10 days -If oxygen requirements increase, give Remdesivir x5 days -Obtain q48-72h inflammatory markers - ferritin, Ddimer, CRP, LDH -If requiring high flow nasal cannula, CRP remains above 7.5, okay to give Actemra -No need for antibiotics -Anticoagulation per hospital protocol -Proning as able Thank you for the consult, we will continue to follow. MD Y[facility] ([facility] O: [phone] F: [phone]
[2021-11-08] MEDS: HYDROcodone/ACETAMINOPHEN 5-325 MG TAB PO PRN (23:14)
[2021-11-09] MEDS: BENZONATATE 100 MG CAP PO SCH ×2 (05:50→14:05)
[2021-11-09 07:31] LABS: Basophils % (Auto) 0.2 % (0.0-1.8); Hematocrit 33.3 % (30.3-42.9); Hemoglobin 11.1 gm/dl (10.1-14.3); Lymphocytes # (Auto) 0.6 K/mm3 (1.2-5.4); Lymphocytes % (Auto) 4.2 % (13.4-35.0); Mean Corpuscular HGB Conc 33 % (30-34); Mean Corpuscular Volume 84 fl (79-97); Monocytes % (Auto) 6.8 % (0.0-7.3); Platelet Count 350 K/mm3 (140-440); Red Blood Count 3.97 M/mm3 (3.65-5.03); Red Cell Distribution Width 13.7 % (13.2-15.2)
--- NOTE | 2021-11-09 08:11 | Progress Note ---
Assessment and Plan 31 y/o female with bilateral pulmonary emboli, COVID positive 11/09/21: Continue steroids for 10 days. Already on oral anticoagulation. Will need ambulatory pulse ox prior to discharge. Still needs outpatient hypercoaguable work up, but most likely VTE related to COVID. Suggest outpatient follow up with [facility]. Will see as needed. 1. Dexamethasone 6mg IV/PO daily 2. Suggest Remdesivir but would need ID consult 3. Check CRP, Ferritin levels. 4. Not sure if she is a candidate for actemra 5. Anticoagulation 6. Prone PRN during the day and sleep prone at night. 7. Still needs [employer] follow up and hypercoag work up, but most likely this is related to COVID Will continue to follow. Subjective Date of service: 11/09/21 Principal diagnosis: Bilateral pulmonary emboli Interval history: Reviewed Chart, ID saw on yesterday, did not recommend Remdesivir. On steroids and now Eliquis. Per chart on room air with good sats. CRP was 30 Objective Vital Signs - 12hr 11/08/21 11/08/21 11/08/21 22:00 23:07 23:14 Temperature 97.7 F Pulse Rate 86 Respiratory 17 17 Rate Respiratory 17 Rate [Medial Chest] Blood Pressure 125/80 [Left] O2 Sat by Pulse 95 100 Oximetry 11/09/21 11/09/21 00:14 05:45 Temperature 98 F Pulse Rate 65 Respiratory 17 17 Rate Respiratory Rate [Medial Chest] Blood Pressure 123/76 [Left] O2 Sat by Pulse 100 Oximetry CBC and BMP: 11/09/21 06:45 11/08/21 07:00 ABG, PT/INR, D-dimer: PT/INR, D-dimer PT 14.3 Sec. (12.2-14.9) 11/06/21 15:01 INR 1.00 (0.87-1.13) 11/06/21 15:01 D-Dimer 892.54 ng/mlDDU (0-234) H 11/06/21 15:01 Abnormal lab findings: Abnormal Labs 11/06/21 11/06/21 11/06/21 15:01 17:39 22:28 WBC 11.8 H MCH 27 L Lymph % (Auto) 10.7 L [place] % (Auto) 11.2 H Lymph # (Auto) [place] # (Auto) 1.3 H Seg Neutrophils % 77.5 H Seg Neutrophils # 9.1 H D-Dimer 892.54 H Heparin Anti-Xa Level Chloride BUN 4 L Creatinine 0.3 L Glucose 112 H Ferritin C-Reactive Protein Coronavirus (PCR) 11/07/21 11/07/21 11/07/21 05:13 05:13 09:44 WBC 13.0 H MCH 27 L Lymph % (Auto) 7.9 L [place] % (Auto) 13.7 H Lymph # (Auto) 1.0 L [place] # (Auto) 1.8 H Seg Neutrophils % 78.0 H Seg Neutrophils # 10.1 H D-Dimer Heparin Anti-Xa Level Chloride BUN 4 L Creatinine 0.4 L Glucose 109 H Ferritin C-Reactive Protein Coronavirus (PCR) Positive A 11/07/21 11/08/21 11/08/21 13:06 07:00 07:00 WBC 11.6 H MCH Lymph % (Auto) 3.5 L [place] % (Auto) Lymph # (Auto) 0.4 L [place] # (Auto) Seg Neutrophils % 89.4 H Seg Neutrophils # 10.3 H D-Dimer Heparin Anti-Xa Level < 0.10 L Chloride 97.3 L BUN 6 L Creatinine 0.3 L Glucose 112 H Ferritin C-Reactive Protein 30.70 H Coronavirus (PCR) 11/08/21 11/09/21 07:00 06:45 WBC 14.5 H MCH Lymph % (Auto) 4.2 L [place] % (Auto) Lymph # (Auto) 0.6 L [place] # (Auto) 1.0 H Seg Neutrophils % 88.8 H Seg Neutrophils # 12.9 H D-Dimer Heparin Anti-Xa Level Chloride BUN Creatinine Glucose Ferritin 283.9 H C-Reactive Protein Coronavirus (PCR)
[2021-11-09] MEDS: dexAMETHasone 4 MG/ML VIAL IV SCH (10:05)
[2021-11-09] MEDS: FAMOTIDINE 20 MG TAB PO SCH (10:06)
[2021-11-09] MEDS: APIXABAN 5 MG TAB PO SCH (10:06)
--- NOTE | 2021-11-09 13:07 | Discharge Summary ---
Providers - Providers Date of Admission: 11/06/21 22:18 Date of discharge: 11/09/21 Attending physician: CELSO SOLORIO MD 11/06/21 22:18 Consult to Physician [CONS] Routine Comment: Consulting Provider: SAM JAMISON Physician Instructions: Reason For Exam: pe 11/06/21 22:24 Consult to Physician [CONS] Urgent Comment: Consulting Provider: JOSÉ MIGUEL ROD Physician Instructions: Reason For Exam: Massive PEs with right heart strain 11/07/21 13:52 Consult to Physician [CONS] Routine Comment: Consulting Provider: ANNALISA VEGA Physician Instructions: Reason For Exam: COVID+ with hypoxic respiratory failure Primary care physician: JOE OSHEA Hospitalization Reason for admission: Acute hypoxic respiratory failure, bilateral massive pulmonary emboli Condition: Serious Pertinent studies: Reviewed. Procedures: None. Hospital course: Patient is a 31-year-old female with past medical history of tobacco dependence, uterine fibroids, and obesity who presented to the ED with complaints of chest pain and shortness of breath that had initiated approximately 2 days prior with associated hemoptysis. Patient described the night prior to presentation developing pain in her left shoulder that migrated down to her left chest. Her shortness of breath and pleuritic pain had worsened to the point where she was only able to sleep upright. Patient denied any extended trips, hormone therapy, recent surgeries, clotting disorders, or known cancer history. In the ED, the patient was found to be hemodynamically stable. Underwent CT angio chest revealing "extensive bilateral pulmonary emboli involving the distal lobar and proximal segmental branches of the left and right lower lobes with resultant pulmonary infarctions within the bilateral lower lobes; mild right heart strain". Vascular surgery and pulmonology were consulted for further management. Patient was initiated on heparin drip. The patient was also started on supplemental oxygen. Patient underwent TTE (11/07/2021) revealing EF 55% and unremarkable for abnormality; no right heart strain. Vascular surgery did not find it appropriate for intervention to performed at this time. Patient was found to be remarkable for COVID-19 pneumonia. The patient was initiated on remdesivir (due to infectious disease consult) and IV dexamethasone. The patient has since been weaned down to room air and transition from heparin drip to Eliquis administration. The patient will continue with Eliquis for a minimum of 3 months. Patient can be discontinued from Eliquis per the recommendation of her primary care provider. Patient will be discharged home with p.o. dexamethasone to complete a 10-day course. The patient is medically clear for discharge. Disposition: 01 HOME / SELF CARE / HOMELESS Final Discharge Diagnosis (Prints w/discharge instructions): Bilateral massive pulmonary emboli, COVID-pneumonia, acute hypoxic respiratory failure, leukocytosis, uterine fibroid, obesity. Time spent for discharge: 45 min Core Measure Documentation - Palliative Care Palliative Care/ Comfort Measures: Not Applicable - Core Measures Any of the following diagnoses?: DVT/PE - VTE Discharge Requirements Deep Vein Thrombosis/Pulmonary Embolism Present on Admission: Yes Has pt received <5 days of overlap therapy or INR<2.0: Yes Anticoagulant overlap therapy prescribed at discharge: Yes Exam - Constitutional Vitals: Temp Pulse Resp BP Pulse Ox 98 F 65 17 123/76 96 11/09/21 05:45 11/09/21 05:45 11/09/21 05:45 11/09/21 05:45 11/09/21 08:55 General appearance: Present: no acute distress, well-nourished - EENT Eyes: Present: PERRL, EOM intact ENT: hearing intact, clear oral mucosa, dentition normal - Neck Neck: Present: supple, normal ROM - Respiratory Respiratory effort: normal Respiratory: bilateral: CTA - Cardiovascular Rhythm: regular Heart Sounds: Present: S1 & S2 - Extremities Extremities: no ischemia, pulses intact, pulses symmetrical, No edema, normal temperature, normal color, Full ROM Peripheral Pulses: within normal limits - Abdominal General gastrointestinal: Present: soft, non-tender, non-distended, normal bowel sounds Female genitourinary: Present: deferred - Rectal Rectal Exam: deferred - Integumentary Integumentary: Present: clear, warm, dry - Musculoskeletal Musculoskeletal: strength equal bilaterally - Psychiatric Psychiatric: appropriate mood/affect, intact judgment & insight, memory intact, cooperative - Neurologic Neurologic: CNII-XII intact, moves all extremities - Allied Health Allied health notes reviewed: nursing, case management Plan Activity: advance as tolerated Diet: regular Additional Instructions: Patient is a 31-year-old female with past medical history of tobacco dependence, uterine fibroids, and obesity who presented to the ED with complaints of chest pain and shortness of breath that had initiated approximately 2 days prior with associated hemoptysis. Patient described the night prior to presentation developing pain in her left shoulder that migrated down to her left chest. Her shortness of breath and pleuritic pain had worsened to the point where she was only able to sleep upright. Patient denied any extended trips, hormone therapy, recent surgeries, clotting disorders, or known cancer history. In the ED, the patient was found to be hemodynamically stable. Underwent CT angio chest revealing "extensive bilateral pulmonary emboli involving the distal lobar and proximal segmental branches of the left and right lower lobes with resultant pulmonary infarctions within the bilateral lower lobes; mild right heart strain". Vascular surgery and pulmonology were consulted for further management. Patient was initiated on heparin drip. The patient was also started on supplemental oxygen. Patient underwent TTE (11/07/2021) revealing EF 55% and unremarkable for abnormality; no right heart strain. Vascular surgery did not find it appropriate for intervention to performed at this time. Patient was found to be remarkable for COVID-19 pneumonia. The patient was initiated on remdesivir (due to infectious disease consult) and IV dexamethasone. The patient has since been weaned down to room air and transition from heparin drip to Eliquis administration. The patient will continue with Eliquis for a minimum of 3 months. Patient can be discontinued from Eliquis per the recommendation of her primary care provider. Patient will be discharged home with p.o. dexamethasone to complete a 10-day course. The patient is medically clear for discharge. Care Plan Goals: Patient is medically clear for discharge. Assessment: Patient is a 31-year-old female with past medical history of tobacco dependence, uterine fibroids, and obesity who presented to the ED with complaints of chest pain and shortness of breath that had initiated approximately 2 days prior with associated hemoptysis. Patient described the night prior to presentation developing pain in her left shoulder that migrated down to her left chest. Her shortness of breath and pleuritic pain had worsened to the point where she was only able to sleep upright. Patient denied any extended trips, hormone therapy, recent surgeries, clotting disorders, or known cancer history. In the ED, the patient was found to be hemodynamically stable. Underwent CT angio chest revealing "extensive bilateral pulmonary emboli involving the distal lobar and proximal segmental branches of the left and right lower lobes with resultant pulmonary infarctions within the bilateral lower lobes; mild right heart s train". Vascular surgery and pulmonology were consulted for further management. Patient was initiated on heparin drip. The patient was also started on supplemental oxygen. Patient underwent TTE (11/07/2021) revealing EF 55% and unremarkable for abnormality; no right heart strain. Vascular surgery did not find it appropriate for intervention to performed at this time. Patient was found to be remarkable for COVID-19 pneumonia. The patient was initiated on remdesivir (due to infectious disease consult) and IV dexamethasone. The patient has since been weaned down to room air and transition from heparin drip to Eliquis administration. The patient will continue with Eliquis for a minimum of 3 months. Patient can be discontinued from Eliquis per the recommendation of her primary care provider. Patient will be discharged home with p.o. dexamethasone to complete a 10-day course. The patient is medically clear for discharge. Follow up with: JOE OSHEA MD [Primary Care Provider] - 3-5 Days Forms: Work/School Release Form Prescriptions: Apixaban [Eliquis starter pack] 5 mg PO BID #70 tab
[2021-11-09 15:07] VITALS: BP 122/78
== END 2021-11-09 16:10 | disposition home or self-care (01) | DRG 175 ==
LOC: ED 07:50 → 4A 22:18 → 3A 11-07 17:46
PROVIDERS: ADMIT Hospitalist; ATTEND Student in an Organized Health Care Education/Training Program
DX: I26.99 Other pulmonary embolism without acute cor pulmonale (principal); J12.82 Pneumonia due to coronavirus disease 2019; U07.1 COVID-19; J96.01 Acute respiratory failure with hypoxia; D25.9 Leiomyoma of uterus, unspecified; F17.200 Nicotine dependence, unspecified, uncomplicated; Z68.30 Body mass index [BMI] 30.0-30.9, adult; Z71.3 Dietary counseling and surveillance; E66.9 Obesity, unspecified; Z91.048 Other nonmedicinal substance allergy status; Z91.09 Other allergy status, other than to drugs and biological substances; Z71.6 Tobacco abuse counseling
CPT/HCPCS: 36415; 71046; 71275; 80048; 80053; 82728; 84484; 84703; 85014; 85018; 85025; 85379; 85520; 85610; 85730; 86140; 93005; 93306; 94640; 94760; 99285; G0378; J3490; C8929; J1100; J1170; J1644; J2270; J2405; Q9967; U0003